=== PATIENT | female | born 1950 | race Asian ===

== ENCOUNTER 2024-04-04 06:38 | Emergency (ER) | payer MEDICARE, OTHER ==
[~2024-04-04] VITALS: Ht 152.4 cm; Wt 55.5 kg
[2024-04-04 06:43] VITALS: TEMP 96.3
[2024-04-04 07:30] LABS: BASOPHILS % (AUTO) 0.9 % (0-1); EOSINOPHILS # (AUTO) 0.1 X10'3 (0-0.9); EOSINOPHILS % (AUTO) 2.5 % (0-6); HEMATOCRIT 41.9 % (35.0-45.0); HEMOGLOBIN 13.9 g/dl (12.0-16.0); LYMPHOCYTES # (AUTO) 1.8 X10'3 (1.1-4.8); LYMPHOCYTES % (AUTO) 39.6 % (21-51); MEAN CORPUSCULAR HEMOGLOBIN 31.5 PG (27.0-31.0); MEAN CORPUSCULAR HGB CONC 33.1 g/dL (33.0-36.5); MEAN CORPUSCULAR VOLUME 95.4 FL (78-98); MEAN PLATELET VOLUME 7.6 FL (7.4-10.4); MONOCYTES # (AUTO) 0.4 X10'3 (0-0.9); MONOCYTES % (AUTO) 8.8 % (2-12); NEUTROPHILS # (AUTO) 2.2 X10'3 (1.8-7.7); NEUTROPHILS % (AUTO) 48.2 % (42-75); PLATELET COUNT 241 X10'3 (140-440); RED BLOOD COUNT 4.39 X10'6 (4.20-5.60); RED CELL DISTRIBUTION WIDTH 13.5 % (11.5-14.5); WHITE BLOOD COUNT 4.5 X10'3 (4.5-11.0)
[2024-04-04 07:40] LABS: ALBUMIN 3.4 G/DL (3.4-5.0); ANION GAP 9 (8-16); APTT 26 SECONDS (22-32); BLOOD UREA NITROGEN 11 MG/DL (7-18); BUN/CREATININE RATIO 16.9 (10.0-20.0); CALCIUM 8.6 MG/DL (8.5-10.1); CHLORIDE 107 MMOL/L (99-107); CREATININE 0.65 MG/DL (0.40-0.90); GLUCOSE 125 MG/DL (70-104); POTASSIUM 3.6 MMOL/L (3.5-5.1); PROTHROMBIN TIME 9.9 SECONDS (9.0-12.0); SODIUM 141 MMOL/L (135-145); eCRCL 55 ML/MIN; eGFR 89 ML/MIN
[2024-04-04 08:00] LABS: INR 0.9 INR
[2024-04-04 08:54] LABS: C-REACTIVE PROTEIN < 0.05 MG/DL (0.0-0.5)
[2024-04-04 11:25] VITALS: BP 130/66; PULSE 75; RESP 14; O2SAT 98
== END 2024-04-04 11:27 | disposition home or self-care (01) ==
LOC: ER 06:41
DX: H53.8 Other visual disturbances (principal); R51.9 Headache, unspecified; Z88.2 Allergy status to sulfonamides
CPT/HCPCS: 36415; 70450; 70551; 71045; 80048; 82948; 85025; 85610; 85651; 85730; 86140; 93005; 99285; J7030